=== PATIENT | female | born 1970 | race Caucasian/White ===

== ENCOUNTER 2017-04-14 08:09 | Emergency (ER) | payer SELFPAY ==
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
[2017-04-14] MEDS ORDERED: ACETAMINOPHEN 325 MG TAB PO ONE (08:24)
--- NOTE | 2017-04-15 07:12 | RADIOLOGY REPORT ---
EXAM: CERVICAL SPINE COMPLETE HISTORY: NECK PAIN RADIATING INTO THE UPPER CHEST AND INTO THE LEFT UPPER EXTREMITY. LEFT HAND TINGLING. TECHNIQUE: AP, lateral, lateral swimmer's, both oblique and odontoid views of the cervical spine were obtained. Comparison: Two view chest radiographic examination dated 08/20/10. FINDINGS: The body of C7 and the odontoid process are visualized. The vertebral bodies are normal in alignment and height. No acute fracture, destructive bone lesion or prevertebral soft tissue swelling is seen. The intervertebral disks, uncovertebral joints and facet joints are normal in appearance. The neural foramina are patent bilaterally. IMPRESSION: NORMAL RADIOGRAPHIC APPEARANCE OF THE CERVICAL SPINE. JOB NUMBER: [id number] MTDD
--- NOTE | 2017-04-15 07:21 | RADIOLOGY REPORT ---
EXAM: LEFT SHOULDER COMPLETE HISTORY: NECK PAIN RADIATING INTO LEFT UPPER EXTREMITY. TECHNIQUE: Internal and external humerus rotation AP views of the left shoulder were obtained as well as scapular Y-views. Comparison: Two view chest radiographic examination dated 08/20/10. Encounter: Initial. FINDINGS: There is normal bone mineralization. No fracture, dislocation, or destructive bone lesion is seen. The articular relations are maintained and no periarticular erosion is seen. Mild levoconvex scoliosis of the lower thoracic spine is redemonstrated associated with multilevel degenerative end plate changes. IMPRESSION: NORMAL LEFT SHOULDER EXAMINATION. JOB NUMBER: [id number] MTDD
== END 2017-04-14 09:28 | disposition home or self-care (01) ==
LOC: ER 08:09
DX: S13.9XXA Sprain of joints and ligaments of unspecified parts of neck, initial encounter (principal); M25.512 Pain in left shoulder; V43.53XA Car driver injured in collision with pick-up truck in traffic accident, initial encounter
CPT/HCPCS: 72050; 99283; 99284